=== PATIENT | male | born 1985 | race Caucasian/White ===

== ENCOUNTER 2021-06-18 15:51 | Inpatient (IN) | payer OTHER ==
[~2021-06-18] VITALS: Ht 180.3 cm; Wt 88.5 kg
[2021-06-18 16:43] LABS: HEMOGLOBIN 13.4 gm/dl (14.0-17.5); RED BLOOD COUNT 4.73 M/UL (4.20-5.50); WHITE BLOOD COUNT 13.3 K/UL (4.5-11.0)
[2021-06-18 17:12] LABS: BUN/CREATININE RATIO 17 (0-10)
[2021-06-18] MEDS ORDERED: OMEPRAZOLE40 MG PO (18:19)
[2021-06-18] MEDS ORDERED: LOSARTAN POTASS25 MG PO (18:20)
[2021-06-18] MEDS ORDERED: NOVOLOG FL100 UNIT/1 SQ (18:20)
[2021-06-18] MEDS ORDERED: LANTUS SOL100 UNIT/1 SQ (18:20)
[2021-06-18] MEDS ORDERED: NICODERM CQ1 EACH TD (18:21)
--- NOTE | 2021-06-19 02:34 | NUR ---
went in to apply tele and patient stated "leave me the fuck alone and get out". The provider and tele were notified.
[2021-06-19 13:18] LABS: BUN/CREATININE RATIO 23 (0-10)
--- NOTE | 2021-06-19 20:52 | NUR ---
PATIENT A&O REFUSING TELE DR BOWEN AWARE. WILL CONTINUE TO OFFER TELE TO PATIENT AND EDUCATE THE IMPORTANCE.
--- NOTE | 2021-06-19 22:47 | NUR ---
PATIENTS CURRENT BP 183/97, CONTACTED PROVIDER
[2021-06-20 05:59] LABS: HEMOGLOBIN 13.1 gm/dl (14.0-17.5); RED BLOOD COUNT 4.61 M/UL (4.20-5.50)
[2021-06-20 06:00] LABS: WHITE BLOOD COUNT 9.3 K/UL (4.5-11.0)
[2021-06-20 06:07] LABS: BUN/CREATININE RATIO 20 (0-10)
[2021-06-21 05:01] LABS: HEMOGLOBIN 12.5 gm/dl (14.0-17.5); RED BLOOD COUNT 4.44 M/UL (4.20-5.50); WHITE BLOOD COUNT 8.6 K/UL (4.5-11.0)
--- NOTE | 2021-06-21 05:42 | NUR ---
CONTACTED PHARMACY REGARDING VANC TROUGH. PINKY SAID OKAY TO GIVE SINCE THE LABS WERE DRAWN SO EARLY
[2021-06-21 05:44] LABS: BUN/CREATININE RATIO 17 (0-10)
[2021-06-22 08:09] LABS: HEMOGLOBIN 13.4 gm/dl (14.0-17.5)
[2021-06-22 08:11] LABS: RED BLOOD COUNT 4.92 M/UL (4.20-5.50)
[2021-06-22 08:27] LABS: BUN/CREATININE RATIO 21 (0-10)
--- NOTE | 2021-06-22 14:05 | NUR ---
MD MAZARIEGOS NOTIFIED ABOUT PTS VASCULAR APPOINTMENT DR MAZARIEGOS STATED THAT THE VASCULAR SURGEONS OFFICE WILL CONTACT PT,THEN HE SAID NEVERMIND I WILL CALL VASCULAR SURGEON AND MAKE APPOINTMENT AND NOTIFY PT
--- NOTE | 2021-06-22 16:15 | NUR ---
UPON DISCHARGE DISCUSSED WITH PATIENT THAT HE WOULD NEED TO REGISTER TO BE SEEN AN OUTPATIENT FOR ANTIBIOTIC THERAPY
== END 2021-06-22 14:04 | disposition home or self-care (01) | DRG 872 ==
LOC: ER1 15:51 → M/S 20:41 → CDU 20:41 → M/S 21:53
PROVIDERS: Internal Medicine; Physician Assistant Medical; ADMIT Internal Medicine
PROC: 3E03329 Introduction of Other Anti-infective into Peripheral Vein, Percutaneous Approach (ICD-10-PCS; principal; 2021-06-19)
PROC: B24BZZZ Ultrasonography of Heart with Aorta (ICD-10-PCS; 2021-06-22)
DX: A41.02 Sepsis due to Methicillin resistant Staphylococcus aureus (principal); M86.8X7 Other osteomyelitis, ankle and foot; Z20.822 Contact with and (suspected) exposure to COVID-19; B18.1 Chronic viral hepatitis B without delta-agent; L03.115 Cellulitis of right lower limb; E87.1 Hypo-osmolality and hyponatremia; A40.1 Sepsis due to streptococcus, group B; E10.40 Type 1 diabetes mellitus with diabetic neuropathy, unspecified; B18.2 Chronic viral hepatitis C; I10 Essential (primary) hypertension; L97.519 Non-pressure chronic ulcer of other part of right foot with unspecified severity; E10.69 Type 1 diabetes mellitus with other specified complication; F15.10 Other stimulant abuse, uncomplicated; F11.10 Opioid abuse, uncomplicated; F12.10 Cannabis abuse, uncomplicated; E10.65 Type 1 diabetes mellitus with hyperglycemia; E10.51 Type 1 diabetes mellitus with diabetic peripheral angiopathy without gangrene; E10.621 Type 1 diabetes mellitus with foot ulcer; F19.10 Other psychoactive substance abuse, uncomplicated; F17.210 Nicotine dependence, cigarettes, uncomplicated; Z79.4 Long term (current) use of insulin; Z89.421 Acquired absence of other right toe(s); Z89.422 Acquired absence of other left toe(s); Z91.14 Patient's other noncompliance with medication regimen
CPT/HCPCS: ECHO; 36415; 71045; 73630; 73701; 73718; 80048; 80053; 80202; 82962; 83036; 83540; 83550; 83605; 83735; 83880; 84100; 85025; 85027; 85652; 86140; 87040; 87070; 87077; 87186; 87205; 93005; 93306; 93926; 93971; 94760; 96374; 96375; 99285; J0360; J1335; J1650; J3370; J7030; J7070; Q0177; Q9967; U0002